=== PATIENT | female | born 1980 | race Caucasian/White ===

== ENCOUNTER → 2018-05-18 11:38 | Outpatient (CLI) | payer SELFPAY ==
[2018-05-22 11:14] LABS: HPV Reflexed? NOT INDICATED
== END ==
PROVIDERS: Family Provider Pediatrics; PCP Pediatrics; Referring Provider Obstetrics & Gynecology; Visit Provider Obstetrics & Gynecology
DX: R87.610 Atypical squamous cells of undetermined significance on cytologic smear of cervix (ASC-US) (principal)
CPT/HCPCS: 88175; G0145